=== PATIENT | male | born 1935 | race Caucasian/White ===

== ENCOUNTER → 2016-09-21 | Day surgery (SDC) | payer MEDICARE, OTHER ==
[~2016-09-21] MED LIST: ADVAI100I INH; DIOV320T PO; GENTAMICIN SULFATE 80 MG/2 ML VIAL ONE; LACTATED RINGER'S 1000 ML INJ 1,000 ML ONE; LEVA3NEB7 NEB; MELA10TA3 PO; MIDAZOLAM HCL 2 MG/2 ML VIAL ONE; PANT20 PO; PROPOFOL 200 MG/20 ML AMP IV ONE; REQU2TAB3 PO; SING4GRA PO; TAMS0.4C67 PO
--- NOTE | 2016-09-21 16:59 | TN ---
cc: FE GARCIA M.D. 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 PROCEDURE: Transurethral incision of bladder neck contractor (TUIBNC), (CPT code 66158). INDICATIONS: Mr. Grider is an 81-year-old gentleman who in June 2015 underwent a transurethral resection of the prostate after a failed microwave thermotherapy at an outside institution. He had done quite well postoperatively until recently and he was found to have chronic retention and under local cystoscopy a bladder neck contracture was identified. He returns now for incision of this. FINDINGS: Normal anterior urethra, mild bulbomembranous urethral stricture. The prostatic urethra shows TUR defect with a bladder neck contracture and a very small hole, probably 10 to 12 [place] in diameter. The bladder shows ureteral orifice normal size, shape and position effluxing clear urine. No susie tumors, abnormal mucosal calcifications identified. No diverticuli, significant trabeculation or cellules. DESCRIPTION OF PROCEDURE: The procedure, as well as the risks and benefits were explained to the patient. Informed consent was obtained. The patient was taken to the major operative theater where he was placed in supine position. The patient was identified as well as the operative site. Chase time-out was performed in a standard fashion. At this time general anesthetic and prophylactic intravenous antibiotics consisting of gentamicin 80 mg was administered. After adequate anesthetic the patient was placed in the low dorsolithotomy position, prepped and draped in the usual sterile fashion. At this time a 22.5 [place] cystoscope with a 30 degree lens was inserted into the urethra to the level of the bladder neck contracture. Photo documentation was obtained. The contracture was too narrow to place a scope. At this time decision was made to perform bipolar transurethral incision of the bladder neck contracture using a needle electrode. At this time using normal saline and a 27-[place] [employer] resectoscope, the cystoscope was replaced and the scope was placed under direct vision to the level of the bladder neck contracture at the 9 and 3 o'clock position. The electrode was used to incise the bladder neck at the appropriate depth of tissue. When the scope could be entered into the bladder, the bladder was systematically surveyed with the above findings and then any additional incision of the bladder neck at the 9 and 3 o'clock position as well as hemostasis was achieved using coagulation Bovie electrocautery. After an adequate channel was opened, the bladder was filled. The resectoscope removed and then pressure was placed on the dome of the bladder with an excellent stream. An 18 [place] catheter was placed without difficulty into the bladder, placed to straight drain with 10 cc of sterile water insufflated into the balloon. The patient tolerated the procedure well, merged from anesthetic without difficulty and transferred to the Recovery Room in stable condition to be discharged home when criteria is met. There were no obvious complications. MD ZOILA Parks/RORO /3:31 PM /4:05 PM
== END | disposition home or self-care (01) ==
LOC: ESDC 11:17
PROVIDERS: ATTEND Urology
DX: N32.0 Bladder-neck obstruction (principal)
CPT/HCPCS: 00912; 52640; J1580; J2250; J3010; J7120

== ENCOUNTER 2017-11-30 23:38 | Observation (INO) ==
--- NOTE | 2017-12-01 00:53 | ED ---
HPI General Chief Complaint: Fall Stated Complaint: Mental Status/EVAC Time Seen by Provider: 11/30/17 23:51 History of Present Illness HPI Narrative: This is a 82-year-old male with a history of hypertension, COPD, presents here after having a mechanical fall. Patient reportedly fell in the bathroom. His states that she found him on the floor the bathroom. Patient does not recall falling. When paramedics arrived, they found the patient to be confused. He did not know where he was or what it happened. He was only a note towards his name. There is no other reported injury. Patient has a baseline of being a GCS of 15. He has a large hematoma to his left temporal forehead. Patient denies any pain in his head or neck. There are no other complaints. Patient was able to tell me his name and date of . He did not know the day, year or who was president. Related Data Allergies Allergy/AdvReac Type Severity Reaction Status Date / Time penicillin G Allergy Severe Rash Unverified 12/21/16 18:00 codeine AdvReac Intermediate NAUSEA AND Unverified 12/21/16 18:00 VOMITING DIZZINESS Review of Systems ROS Unobtainable unobtainable due to mental status Except as stated in HPI: all other systems reviewed are negative (Patient has no physical complaints.) Constitutional Reports system reviewed and no additional complaints, except as docu Eyes Reports system reviewed and no additional complaints, except as docu ENT Reports system reviewed and no additional complaints, except as docu Cardiovascular Reports system reviewed and no additional complaints, except as docu Respiratory Reports system reviewed and no additional complaints, except as docu Gastrointestinal Reports system reviewed and no additional complaints, except as docu Genitourinary Reports system reviewed and no additional complaints, except as docu Musculoskeletal Reports system reviewed and no additional complaints, except as docu Neurologic Reports as per HPI Psychiatric Reports system reviewed and no additional complaints, except as docu PMFSH Medical History Medical History Asthma (Acute) Hypertension (Acute) Surgical History Surgical History History of arthroplasty of both hips (Acute) Social History Social History Substance History: No History of Abuse Second Hand Smoke Exposure: No Smoking Status: Never smoker How Often Do You Have a Drink Containing Alcohol: Never Recent Travel in [facility] within the Last 8 Weeks: No Recent Out of Country Travel within the Last 8 Weeks: No Immunization History Tetanus Immunization: <5 Years Hx Influenza Vaccine This Season: Yes Exam Narrative Exam Narrative: GENERAL: Well-developed well-nourished male in no acute respiratory distress. SKIN: Focused skin assessment warm/dry. HEAD: Normocephalic. The patient has a hematoma to his left temporal area. There is no palpable defects in his skull. EYES: Extraocular muscles were intact.. No scleral icterus. No injection or drainage. ENT: No nasal bleeding or discharge. Mucous membranes pink and moist. NECK: Trachea midline. Supple. Patient has no posterior spinous process tenderness. There is no deformity. CARDIOVASCULAR: Regular rate and rhythm. No murmur appreciated. Sinus rhythm noted on the monitor. RESPIRATORY: No accessory muscle use. Clear to auscultation. Breath sounds equal bilaterally. GASTROINTESTINAL: Abdomen soft, non-tender, nondistended. Hepatic and splenic margins not palpable. MUSCULOSKELETAL: No obvious deformities. No clubbing. No cyanosis. No edema. NEUROLOGICAL: Awake and confused to date year and president. No obvious cranial nerve deficits. Motor grossly within normal limits. Normal speech. Course Initial Documented Vital Signs Temperature 98.7 F 11/30/17 23:48 Pulse Rate 78 11/30/17 23:48 Respiratory Rate 16 11/30/17 23:48 Blood Pressure 196/95 H 11/30/17 23:48 Pulse Oximetry 98 11/30/17 23:48 Last Documented Vital Signs Temperature 98.7 F 11/30/17 23:48 Pulse Rate 78 11/30/17 23:48 Respiratory Rate 16 11/30/17 23:48 Blood Pressure 196/95 H 11/30/17 23:48 Pulse Oximetry 98 11/30/17 23:[address] [facility] Narrative Medical decision making narrative: This is a 82-year-old male presents after having a questionable syncopal versus mechanical fall while ambulatory to the bathroom. Patient presents here with confusion. Patient has a cephalohematoma to his left temporal area. CT shows no evidence of acute intracranial abnormality. Patient has normal cervical spine CT. CBC and electrolytes are within normal limits. Urinalysis is within normal limits. The patient did have ecchymosis over his right thumb. He denied any pain. X-ray of the right thumb shows a comminuted distal proximal phalanx fracture. This is been placed in a thumb spica. The patient will be admitted to the hospital under observation for syncope versus concussion. Case was discussed with Dr. Lilli Hillman who is agreeable to the admission. Differential Diagnosis Differential Diagnosis: Percussion versus intracranial hemorrhage versus metabolic derangement Lab Data Result diagrams: 12/01/17 01:15 12/01/17 01:15 Lab Results 12/01/17 12/01/17 12/01/17 Range/Units 01:15 01:15 01:20 WBC 8.1 (4.0-11.0) th/mm3 RBC 4.16 L (4.50-5.90) mil/mm3 Hgb 13.0 (13.0-17.0) gm/dL Hct 39.7 (39.0-51.0) % MCV 95.3 (80.0-100.0) fL MCH 31.3 (27.0-34.0) pg MCHC 32.9 (32.0-36.0) % RDW 14.1 (11.6-17.2) % Plt Count 292 (150-450) th/mm3 MPV 8.2 (7.0-11.0) fL Neut % (Auto) 55.4 (16.0-70.0) % Lymph % (Auto) 33.1 (9.0-44.0) % [place] % (Auto) 8.2 H (0.0-8.0) % Eos % (Auto) 2.6 (0.0-4.0) % Baso % (Auto) 0.7 (0.0-2.0) % Neut # (Auto) 4.5 (1.8-7.7) th/mm3 Lymph # (Auto) 2.7 (1.0-4.8) th/mm3 [place] # (Auto) 0.7 (0.0-0.9) th/mm3 Eos # (Auto) 0.2 (0.0-0.4) th/mm3 Baso # (Auto) 0.1 (0.0-0.2) th/mm3 WBC Differential . Differential Comment Auto diff final Sodium 139 (136-145) meq/L Potassium 3.9 (3.5-5.1) meq/L Chloride 105 (98-107) meq/L Carbon Dioxide 25.3 (21.0-32.0) meq/L Anion Gap 9 (5-15) meq/L BUN 13 (7-18) mg/dL Creatinine 0.64 (0.60-1.30) mg/dL Estimated GFR Greater than 89 (>89) mL/min Random Glucose 111 H (74-106) mg/dL Calcium 8.4 L (8.5-10.1) mg/dL Total Bilirubin 0.4 (0.2-1.0) mg/dL AST 53 H (15-37) U/L ALT 55 (12-78) U/L Alkaline Phosphatase 105 (45-117) U/L Total Protein 7.2 (6.4-8.2) g/dL Albumin 3.7 (3.4-5.0) g/dL Urine Color Straw (Yellw/Straw) Urine Clarity Clear (Clear) Urine pH 7.0 (5.0-8.5) Ur Specific [place] 1.005 (1.002-1.035) Urine Protein Negative (Neg-Trace) mg/dL Urine Glucose (UA) Negative (Negative) mg/dL Urine Ketones Negative (Negative) mg/dL Urine Occult Blood Negative (Negative) Urine Nitrate Negative (Negative) Urine Bilirubin Negative (Negative) Urine Urobilinogen Less than 2 (Less than 2) mg/dL Ur Leukocyte Esterase Negative (Negative) Urine RBC 1 (0-3) /hpf Urine WBC Less than 1 (0-5) /hpf Micro UA Comment Culture not ind Urine Culture Comments Culture not ind Imaging Data Radiologist's impression: Cervical Spine CT 12/01/17 00:01 CONCLUSION: Head CT 12/01/17 00:01 CONCLUSION: Finger X-Ray 12/01/17 01:32 CONCLUSION: Discharge Plan Discharge Disposition Patient Disposition: 30 Still Patient Discharge Details Diagnosis: Closed head injury with brief loss of consciousness, Syncope, Fracture of phalanx of right thumb Physicians Team ED Provider: Bob Isabel Primary Care Provider: Brandon Foy Status ED Status: With Doctor
--- NOTE | 2017-12-01 00:56 | CT ---
EXAM DATE: 12/01/2017 12:43 AM EDT AGE/SEX: 82 years / Male INDICATIONS: Trauma; fall. CLINICAL DATA: This is the patient's initial encounter. Patient reports that signs and symptoms have been present for 1 day and indicates a pain score of 5/10. MEDICAL/SURGICAL HISTORY: Hypertension. . hip RADIATION DOSE: 21.05 CTDI (mGy) COMPARISON: No prior exams available for comparison. TECHNIQUE: Contiguous axial images were obtained using helical multirow detector technique. The vol umetric data was post-processed with multiplanar reconstruction in oblique axial, sagittal, and coron al planes. Using automated exposure control and adjustment of the mA and/or kV according to patient s ize, radiation dose was kept as low as reasonably achievable to obtain optimal diagnostic quality maya ges. DICOM format image data is available electronically for review and comparison. FINDINGS: Sagittal and coronal reconstruction show multilevel degenerative disc disease with loss of disc heigh t and some marginal spurring from C3-4 inferiorly. Vertebral body heights are maintained without frac ture. Minimal grade 1 anterolisthesis of C7 on T1. Despite the minimal degenerative spurring, the spi nal canal appears to be adequate throughout. Well-corticated ossifications posterior to the spinous p rocesses of C5 and C6 could represent old avulsion injuries. I do not see an acute fracture, however. C2-3: The bony spinal canal is normal in size. No evidence of disc bulge or herniation. The neural foramina are bilaterally patent. C3-4: I vertebral ridging with encroachment on both neural foramina. Spinal canal is adequate C4-5: Uncovertebral ridging with marked narrowing of the left neural foramina which almost certainly compromises the left C5 nerve root. Spinal canal and right neural foramina are adequate C5-6: I vertebral ridging with narrowing of both neural foramina. I believe the foramina remain adeq uate to accommodate the exiting C6 nerve roots, however C6-7: Uncovertebral ridging with asymmetric narrowing the left neural foramina which may compromise the left C7 nerve root. Spinal canal and right neural foramina are adequate C7-T1: The bony spinal canal is normal in size. No evidence of disc bulge or herniation. The neura l foramina are bilaterally patent. 1. Multilevel degenerative disc disease with loss of disc height and some uncovertebral ridging from C3-4 inferiorly. Minimal grade 1 anterolisthesis of C7 on T1 2. Well-corticated ossifications posteriorly to the spinous processes of C5 and C6 may represent old avulsion injuries or soft tissue ossification. No acute fractures, however. 3. Despite degenerative changes, the spinal canal appears to be adequate throughout without cord com promise. 4. Uncovertebral ridging narrows neural foramina at multiple levels which may be severe enough to co mpromise both C4, left C5 and left C7 nerve roots. Electronically signed by: Kilo Mario MD 12/01/2017 12:55 AM EDT
--- NOTE | 2017-12-01 00:59 | CT ---
EXAM DATE: 12/01/2017 12:42 AM EDT AGE/SEX: 82 years / Male INDICATIONS: Trauma; fall. CLINICAL DATA: This is the patient's initial encounter. Patient reports that signs and symptoms have been present for 1 day and indicates a pain score of 5/10. MEDICAL/SURGICAL HISTORY: Hypertension. . hip RADIATION DOSE: 56.35 CTDI (mGy) COMPARISON: No prior exams available for comparison. TECHNIQUE: CT of the head without contrast. Using automated exposure control and adjustment of the mA and/or kV according to patient size, radiation dose was kept as low as reasonably achievable to ob tain optimal diagnostic quality images. DICOM format image data is available electronically for revi ew and comparison. FINDINGS: Cerebrum: Symmetric cortical and central atrophy. Periventricular areas of diminished attenuation ch aracteristic of moderately severe small vessel ischemic demyelination. No evidence of midline shift, mass lesion, hemorrhage or acute infarction. No extraaxial fluid collections are seen. Posterior Fossa: The cerebellum and brainstem are intact. The 4th ventricle is midline. The cerebe llopontine angle is unremarkable. Extracranial: The visualized portion of the orbits is intact. Skull: The calvaria is intact. No evidence of skull fracture. Small cephalhematoma over the left fr ontal bone. 1. Small cephalohematoma over the left frontal region. 2. Chronic changes with cortical and central atrophy and periventricular small vessel ischemic demye lination. 3. No acute intracranial process, trauma or fracture. . Electronically signed by: Kilo Mario MD 12/01/2017 12:58 AM EDT
[2017-12-01 01:36] LABS: Baso # (Auto) 0.1 th/mm3 (0.0-0.2); Baso % (Auto) 0.7 % (0.0-2.0); Eos # (Auto) 0.2 th/mm3 (0.0-0.4); Eos % (Auto) 2.6 % (0.0-4.0); Hematocrit 39.7 % (39.0-51.0); Lymph # (Auto) 2.7 th/mm3 (1.0-4.8); Lymph % (Auto) 33.1 % (9.0-44.0); Mean Corpuscular HGB Conc 32.9 % (32.0-36.0); Mean Corpuscular Hemoglobin 31.3 pg (27.0-34.0); Mean Corpuscular Volume 95.3 fL (80.0-100.0); Mean Platelet Volume 8.2 fL (7.0-11.0); Mono # (Auto) 0.7 th/mm3 (0.0-0.9); Mono % (Auto) 8.2 % (0.0-8.0); Neut # (Auto) 4.5 th/mm3 (1.8-7.7); Neut % (Auto) 55.4 % (16.0-70.0); Platelet Count 292 th/mm3 (150-450); Red Blood Count 4.16 mil/mm3 (4.50-5.90); Red Cell Distribution Width 14.1 % (11.6-17.2); White Blood Count 8.1 th/mm3 (4.0-11.0)
[2017-12-01 01:54] LABS: Bilirubin,Urine Negative (Negative); Clarity,Urine Clear (Clear); Color,Urine Straw (Yellw/Straw); Glucose,Urine (UA) Negative (Negative); Leukocyte Esterase,Urine Negative (Negative); Nitrite,Urine Negative (Negative); Specific Gravity,Urine 1.005 (1.002-1.035)
[2017-12-01 02:05] LABS: Albumin 3.7 g/dL (3.4-5.0); Anion Gap 9 meq/L (5-15); Aspartate Aminotransferase 53 U/L (15-37); Blood Urea Nitrogen 13 mg/dL (7-18); Calcium 8.4 mg/dL (8.5-10.1); Carbon Dioxide 25.3 meq/L (21.0-32.0); Chloride 105 meq/L (98-107); Glomerular Filtration Rate Greater Than 89 mL/min (>89); Glucose,Random 111 mg/dL (74-106); Potassium 3.9 meq/L (3.5-5.1); Sodium 139 meq/L (136-145)
[2017-12-01 02:07] LABS: Alanine Aminotransferase 55 U/L (12-78); Alkaline Phosphatase 105 U/L (45-117); Total Protein 7.2 g/dL (6.4-8.2)
--- NOTE | 2017-12-01 02:29 | XR ---
EXAM DATE: 12/01/2017 2:11 AM EDT AGE/SEX: 82 years / Male INDICATIONS: Right thumb pain and bruising. CLINICAL DATA: This is the patient's initial encounter. Patient reports that signs and symptoms have been present for 1 day and indicates a pain score of 6/10. MEDICAL/SURGICAL HISTORY: Hypertension. None. COMPARISON: No prior exams available for comparison. FINDINGS: Comminuted fracture through the base of the distal phalanx of the thumb with intra-articular extensio n. There may be an avulsion fracture through the base of the first metacarpal as well. CONCLUSION: 1. Comminuted fracture at the base of the distal phalanx of the thumb with intra-articular extension . 2. Possible avulsion injury at the base of the first metacarpal. Electronically signed by: Kilo Mario MD 12/01/2017 2:27 AM EDT
[2017-12-01] MEDS ORDERED: Temazepam 15 MG Capsule PO PRN (03:29)
[2017-12-01] MEDS ORDERED: Bisacodyl 10 MG Supp RECTAL PRN (03:29)
--- NOTE | 2017-12-01 04:15 | P.HP ---
History of Present Illness Service: [facility] Primary Care Physician: Brandon Foy MD History of Present Illness: 82-year-old male with a past medical history significant for hypertension and asthma presents to the emergency department after suffering a fall. The patient 's reports that he heard a crash from the bathroom and when he came in she found her on the floor. The patient is not sure how he fell, believes it may be secondary to low blood pressure. The patient has a cephalohematoma on the left side of his head secondary to his fall. He denies any chest pain or shortness of breath. No abdominal pain. No nausea/vomiting/diarrhea. No fever/chills. The patient's reports that the patient was very confused after his fall. She states he only knew his name and did not know his birthday, the current year or the president. At the time of our interview the patient is able to answer all of these questions correctly. He states he feels fine at this time. Review of Systems All other systems reviewed negative except as stated in HPI [facility] - History History Provided By: Patient, Family Member - Medical History Medical History: Medical History (Last Updated 11/30/17 @ 23:51 by Nakul Montano) Asthma Hypertension - Surgical History Surgical History: Surgical History (Last Updated 11/30/17 @ 23:53 by Nakul Montano) History of arthroplasty of both hips - Family History Family History: Family History (Last Updated 12/01/17 @ 04:09 by Lilli Hillman MD) Other No family history of cardiac disease - Tobacco History Second Hand Smoke Exposure: No Smoking Status: Never smoker - Alcohol History How Often Do You Have a Drink Containing Alcohol: Never - Substance Use History Substance History: No History of Abuse - Travel History Recent Travel in the [place] Within the Last 8 Weeks: No Recent Travel Out of the Country Within the Last 8 Weeks: No - Immunization History Tetanus Immunization: <5 Years Hx Influenza Vaccine This Season: Yes Medications and Allergies Active Medications: Active Medications Acetaminophen (Tylenol) 650 mg PO Q4H PRN PRN Reason: Temp > 100.4 Al Hydroxide/Mg Hydroxide (Milk Of Magnesia Liq) 30 ml PO Q12H PRN PRN Reason: Mild Constipation Bisacodyl (Dulcolax Supp) 10 mg RECTAL DAILY PRN PRN Reason: SEVERE CONSITIPATION Heparin Sodium (Porcine) (Heparin Inj) 5,000 units SQ Q8H PETEY Lactulose (Lactulose Liq) 30 ml PO DAILY PRN PRN Reason: SEVERE CONSITIPATION Ondansetron HCl (Zofran Inj) 4 mg IV.PUSH Q6H PRN PRN Reason: NAUSEA OR VOMITING Ropinirole HCl (Requip) 1 mg PO HS PETEY Senna/Docusate Sodium (Tiffanie-Colace) 1 tab PO BID PETEY Sennosides (Senokot) 17.2 mg PO Q12H PRN PRN Reason: Moderate Constipation Temazepam (Restoril) 15 mg PO HS PRN PRN Reason: INSOMNIA Allergies Allergy/AdvReac Type Severity Reaction Status Date / Time penicillin G Allergy Severe Rash Unverified 12/21/16 18:00 codeine AdvReac Intermediate NAUSEA AND Unverified 12/21/16 18:00 VOMITING DIZZINESS Exam Vital signs: Vital Signs 11/30/17 23:48 Temperature 98.7 F Pulse Rate 78 Respiratory Rate 16 Blood Pressure 196/95 H Pulse Oximetry 98 Intake & Output 11/30/17 11/30/17 12/01/17 06:59 18:59 06:59 Weight 90.718 kg Narrative: Gen.: No acute distress Head: Moderate size cephalohematoma on left forehead near the shinto. EENT: Pupils equal round and reactive to light. Nose without drainage. Airway intact. Throat without injection. Cardiovascular: Regular rate and rhythm. No murmurs, rubs or gallops. Respiratory: Lungs clear to auscultation bilaterally. No wheezes or rhonchi. Abdomen: Soft, nontender, nondistended. No peritoneal signs. Musculoskeletal: No gross deformities. No edema. Skin: No obvious rashes or erythema. Neuro: Sensory and motor grossly intact. Cranial nerves II through XII grossly intact. Results - Labs CBC & Chem 7: 12/01/17 01:15 12/01/17 01:15 Labs: Laboratory Results - last 24 hr 12/01/17 12/01/17 12/01/17 01:15 01:15 01:20 WBC 8.1 RBC 4.16 L Hgb 13.0 Hct 39.7 MCV 95.3 MCH 31.3 MCHC 32.9 RDW 14.1 Plt Count 292 MPV 8.2 Neut % (Auto) 55.4 Lymph % (Auto) 33.1 [place] % (Auto) 8.2 H Eos % (Auto) 2.6 Baso % (Auto) 0.7 Neut # (Auto) 4.5 Lymph # (Auto) 2.7 [place] # (Auto) 0.7 Eos # (Auto) 0.2 Baso # (Auto) 0.1 WBC Differential . Differential Comment Auto diff final Sodium 139 Potassium 3.9 Chloride 105 Carbon Dioxide 25.3 Anion Gap 9 BUN 13 Creatinine 0.64 Estimated GFR Greater than 89 Random Glucose 111 H Calcium 8.4 L Total Bilirubin 0.4 AST 53 H ALT 55 Alkaline Phosphatase 105 Total Protein 7.2 Albumin 3.7 Urine Color Straw Urine Clarity Clear Urine pH 7.0 Ur Specific [place] 1.005 Urine Protein Negative Urine Glucose (UA) Negative Urine Ketones Negative Urine Occult Blood Negative Urine Nitrate Negative Urine Bilirubin Negative Urine Urobilinogen Less than 2 Ur Leukocyte Esterase Negative Urine RBC 1 Urine WBC Less than 1 Micro UA Comment Culture not ind Urine Culture Comments Culture not ind - Imaging Impressions Cervical Spine CT 12/01/17 00:01 CONCLUSION: Head CT 12/01/17 00:01 CONCLUSION: Finger X-Ray 12/01/17 01:32 CONCLUSION: Caprini VTE Risk Assessment Caprini VTE Risk Assessment: Moderate/High Risk (score >= 2) Caprini Risk Assessment Model: Point Value = 1 Point Value = 2 Point Value = 3 Point Value = 5 Age 41-60 Minor surgery BMI > 25 kg/m2 Swollen legs Varicose veins or History of unexplained or recurrent spontaneous Oral contraceptives or hormone replacement Sepsis (< 1 month) Serious lung disease, including pneumonia (< 1 month) Abnormal pulmonary function Acute myocardial infarction Congestive heart failure (< 1 month) History of inflammatory bowel disease Medical patient at bed rest Age 61-74 Arthroscopic surgery Major open surgery (> 45 min) Laparoscopic surgery (> 45 min) Malignancy Confined to bed (> 72 hours) Immobilizing plaster cast Central venous access Age >= 75 History of VTE Family history of VTE Factor V Leiden Prothrombin [id number] Lupus anticoagulant Anticardiolipin antibodies Elevated serum homocysteine Heparin-induced thrombocytopenia Other congenital or acquired thrombophilia Stroke (< 1 month) Elective arthroplasty Hip, pelvis, or leg fracture Acute spinal cord injury (< 1 month) Prophylaxis Regimen: Total Risk Factor Score Risk Level Prophylaxis Regimen 0-1 Low Early ambulation 2 Moderate Order ONE of the following: *Sequential Compression Device (SCD) *Heparin 5000 units SQ BID 3-4 Higher Order ONE of the following medications: *Heparin 5000 units SQ TID *Enoxaparin/Lovenox 40 mg SQ daily (WT < 150 kg, CrCl > 30 mL/min) *Enoxaparin/Lovenox 30 mg SQ daily (WT < 150 kg, CrCl > 10-29 mL/min) *Enoxaparin/Lovenox 30 mg SQ BID (WT < 150 kg, CrCl > 30 mL/min) AND/OR *Sequential Compression Device (SCD) 5 or more Highest Order ONE of the following medications: *Heparin 5000 units SQ TID (Preferred with Epidurals) *Enoxaparin/Lovenox 40 mg SQ daily (WT < 150 kg, CrCl > 30 mL/min) *Enoxaparin/Lovenox 30 mg SQ daily (WT < 150 kg, CrCl > 10-29 mL/min) *Enoxaparin/Lovenox 30 mg SQ BID (WT < 150 kg, CrCl > 30 mL/min) AND *Sequential Compression Device (SCD) Assessment and Plan - Plan Assessment/plan: 1. Altered mental status/? syncopal event Patient does not remember how he fell. Concern for syncope. 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 Hypertension Continue home medications once medication reconciliation completed Clonidine as needed 3. Restless leg syndrome Continue home Requip FEN Heart healthy diet Electrolytes: Monitor and replete as needed Holding pharmacologic anticoagulation secondary to head trauma
[2017-12-01 05:05] LABS: Creatine Kinase 891 U/L (39-308)
[2017-12-01 05:17] LABS: CKMB Percent 2.8 % (0.0-4.0); Creatine Kinase MB 24.7 ng/mL (0.5-3.6)
[2017-12-01] MEDS ORDERED: Heparin - SQ 10,000 UNITS/ML Vial SQ SCH (06:00)
[2017-12-01] MEDS: Acetaminophen 325 MG Tablet PO PRN ×3 (08:41→21:55)
--- NOTE | 2017-12-01 08:41 | P.PN ---
Subjective Interval history: Follow-up fall and confusion. Feeling ok oriented no confusion Physical Exam Vital signs: Vital Signs 11/30/17 23:48 12/01/17 04:39 12/01/17 06:10 Temperature 98.7 F 98.3 F 98.0 F Pulse Rate 78 66 61 Respiratory Rate 16 14 14 Blood Pressure 196/95 H 168/83 H 158/73 H Pulse Oximetry 98 98 98 12/01/17 07:55 Temperature Pulse Rate 58 L Respiratory Rate 18 Blood Pressure 150/79 H Pulse Oximetry Intake & Output 11/30/17 12/01/17 12/01/17 18:59 06:59 18:59 Weight 90.718 kg Narrative: Gen.: No acute distress Head: Moderate size cephalohematoma on left forehead near the yazdanism. Cardiovascular: Regular rate and rhythm. No murmurs, rubs or gallops. Respiratory: Lungs clear to auscultation bilaterally. No wheezes or rhonchi. Abdomen: Soft, nontender, nondistended. No peritoneal signs. Musculoskeletal: No gross deformities. No edema. Skin: No obvious rashes or erythema. Neuro: Sensory and motor grossly intact. Cranial nerves II through XII grossly intact. Results - Labs CBC & Chem 7: 12/01/17 01:15 12/01/17 01:15 Laboratory Results - last 24 hr 12/01/17 12/01/17 12/01/17 01:15 01:15 01:20 WBC 8.1 RBC 4.16 L Hgb 13.0 Hct 39.7 MCV 95.3 MCH 31.3 MCHC 32.9 RDW 14.1 Plt Count 292 MPV 8.2 Neut % (Auto) 55.4 Lymph % (Auto) 33.1 [place] % (Auto) 8.2 H Eos % (Auto) 2.6 Baso % (Auto) 0.7 Neut # (Auto) 4.5 Lymph # (Auto) 2.7 [place] # (Auto) 0.7 Eos # (Auto) 0.2 Baso # (Auto) 0.1 WBC Differential . Differential Comment Auto diff final Sodium 139 Potassium 3.9 Chloride 105 Carbon Dioxide 25.3 Anion Gap 9 BUN 13 Creatinine 0.64 Estimated GFR Greater than 89 Random Glucose 111 H Calcium 8.4 L Total Bilirubin 0.4 AST 53 H ALT 55 Alkaline Phosphatase 105 Total Creatine Kinase 891 H CK-MB (CK-2) 24.7 H CK-MB (CK-2) % 2.8 Troponin I Less than 0.02 L Total Protein 7.2 Albumin 3.7 Urine Color Straw Urine Clarity Clear Urine pH 7.0 Ur Specific [place] 1.005 Urine Protein Negative Urine Glucose (UA) Negative Urine Ketones Negative Urine Occult Blood Negative Urine Nitrate Negative Urine Bilirubin Negative Urine Urobilinogen Less than 2 Ur Leukocyte Esterase Negative Urine RBC 1 Urine WBC Less than 1 Micro UA Comment Culture not ind Urine Culture Comments Culture not ind - Imaging Impressions Cervical Spine CT 12/01/17 00:01 CONCLUSION: Head CT 12/01/17 00:01 CONCLUSION: Finger X-Ray 12/01/17 01:32 CONCLUSION: - Procedures none Assessment and Plan - Assessment (1) Closed head injury with brief loss of consciousness Code(s): S06.9X9A - Unspecified intracranial injury with loss of consciousness of unspecified duration, initial encounter Status: Acute - Plan 1. Altered mental status/? syncopal event. Patient does not remember how he fell. Concern for syncope. Echo, carotid ultrasound pending Orthostatic vital signs pending Head CT significant for a cephalohematoma over the left frontal region without acute intracranial process. Ice Mentation has returned to baseline. May be post concussive syndrome Consider MRI/neurology consult if symptoms return 2. Hypertension Continue home medications once medication reconciliation completed Clonidine as needed 3. Restless leg syndrome Continue home Requip 4. Uncovertebral ridging narrows neural foramina at multiple levels which may be severe enough to compromise both C4, left C5 and left C7 nerve roots. Intermittent neck pain after swimming but no radiculopathy or weakness. 5. Comminuted fracture at the base of the distal phalanx of the thumb with intra-articular extension. Possible avulsion injury at the base of the first metacarpal. Nonweightbearing. Splinting. Consult hand surgery. Pain management with Tylenol and Lortab FEN N.p.o. for now. IV fluids while n.p.o. Electrolytes: Monitor and replete as needed Holding pharmacologic anticoagulation secondary to head trauma Discharge Planning: Discharge when cleared by hand surgery
[2017-12-01] MEDS ORDERED: Naloxone Inj 0.4 MG/ML Vial IV.PUSH PRN (08:50)
[2017-12-01] MEDS ORDERED: Dextrose 50% in Water 50 ML Vial IV.PUSH PRN (08:51)
--- NOTE | 2017-12-01 09:03 | US ---
EXAM DATE: 12/01/2017 8:32 AM EDT AGE/SEX: 82 years / Male INDICATIONS: Syncope. Recent trauma and head injury. CLINICAL DATA: This is the patient's initial encounter. Patient reports that signs and symptoms have been present for 1 day and indicates a pain score of 4/10. MEDICAL/SURGICAL HISTORY: . Hypertension. . Bilateral hip surgery. COMPARISON: No prior exams available for comparison. VELOCITY PARAMETERS: ICA/CCA Ratio: Right 0.6 , Left 0.7 ICA: Right 59 cm/sec, Left 63 cm/sec CCA: Right 104 cm/sec, Left 85 cm/sec ECA: Right 69 cm/sec, Left 76 cm/sec Vertebral: Right 34 cm/sec antegrade, Left 40 cm/sec antegrade FINDINGS: Right Carotid: Mild arteriosclerotic plaque is visualized.The waveforms are within normal limits. Left Carotid: Mild arteriosclerotic plaque is visualized. The waveforms are within normal limits. Other: None. Electronically signed by: Panchito Keenan MD 12/01/2017 9:02 AM EDT
[2017-12-01] MEDS: Senna/Docusate Sodium 8.6/50 MG Tablet PO SCH ×2 (11:55→23:16)
--- NOTE | 2017-12-01 14:46 | P.DCO ---
- Diagnosis (2) Syncope (3) Fracture of phalanx of right thumb - Physical Therapy Order: Evaluate and treat, Improve ambulation, Strength and gait training - Home Health Nursing Order: Medication education-adverse effect, Nursing assessment with vital signs - Certification I have seen patient Rani Grider on 12/01/17. My clinical findings support the need for the requested home health care services because: Deconditioned with increased weakness I certify that my clinical findings support that this patient is homebound because: Unsafe to leave home unassisted (2) Syncope Qualifiers: Syncope type: unspecified Qualified Code(s): R55 - Syncope and collapse (3) Fracture of phalanx of right thumb Qualifiers: Encounter type: initial encounter Fracture type: closed Phalanx: distal Fracture alignment: nondisplaced Qualified Code(s): S62.524A - Nondisplaced fracture of distal phalanx of right thumb, initial encounter for closed fracture
--- NOTE | 2017-12-01 17:53 | MB ---
cc: Mary Arora MD DATE: 12/01/2017 REQUESTING PHYSICIAN: Dr. Duncan Piper. REASON FOR CONSULTATION: Comminuted fracture of the right thumb distal phalanx base. HISTORY OF PRESENT ILLNESS: The patient is an 82-year-old male who was admitted earlier today. It was noted that he had fallen at home. During the workup, it was noted the patient did have ecchymosis of his right thumb. Consultation was requested regarding evaluation and treatment of that fracture. The patient does report that he can bend the thumb but that there is pain. PAST MEDICAL HISTORY: The patient has a history of asthma and hypertension. PAST SURGICAL HISTORY: Arthroplasty of both hips. FAMILY HISTORY: Noncontributory. SOCIAL HISTORY: The patient never smoked. Denies a history of alcohol or drug abuse. ALLERGIES: INCLUDE PENICILLIN G AND CODEINE. PHYSICAL EXAMINATION: GENERAL: The patient is lying comfortably in bed. VITAL SIGNS: His temperature is 97.9, pulse 51, respirations 16, blood pressure 155/75. HEENT: His extraocular muscles are intact. His pupils are equal, round and reactive to light. His mouth is clear. NECK: Supple, without masses. LUNGS: Clear. HEART: Regular rate and rhythm. EXTREMITIES: Examination of the upper extremities reveal some ecchymosis of the right thumb. The patient can bend the thumb slightly, but it does cause discomfort. RADIOGRAPHIC STUDIES: The s-rays are reviewed and there is a comminuted fracture of the base of the right thumb distal phalanx, but the joint is congruent and there are several millimeters of displacement, but it does appear to be adequately aligned. IMPRESSION: Comminuted fracture of the base of the right thumb. PLAN: The patient is advised of 3-4 weeks of splinting and he should be able to regain his motion. The patient is to follow up in my office after discharge for further examination and treatment. The patient understands and accepts the risks and complications of the treatment. MD PHOEBE Cotto/HIRAM , 05:39 PM , 05:48 PM
[2017-12-01] MEDS ORDERED: CALCIUM CARBONATE 1200 MG PO SCH (21:00)
[2017-12-01] MEDS ORDERED: Melatonin 5 MG Tablet PO PRN (21:00)
[2017-12-01] MEDS ORDERED: Non-Formulary Drug (Cholecalciferol (Vitamin D3) [Vitamin D3] 1,000 UNIT) PO SCH (21:00)
[2017-12-01] MEDS ORDERED: Non-Formulary Drug (Fluticasone-Salmeterol [Advair Diskus] 1 INH) INHALATION SCH (21:00)
[2017-12-01] MEDS: Calcium Carbonate 500 MG Tablet PO SCH (21:46)
[2017-12-01] MEDS: Montelukast 10 MG Tablet PO SCH (21:46)
[2017-12-01] MEDS: Budesonide-Formoterol 160/4.5 MCG 6 GM Inhaler INH SCH (21:47)
[2017-12-02] MEDS: Senna/Docusate Sodium 8.6/50 MG Tablet PO SCH ×2 (09:36→21:55)
[2017-12-02] MEDS: Budesonide-Formoterol 160/4.5 MCG 6 GM Inhaler INH SCH ×2 (09:36→21:55)
[2017-12-02] MEDS: Folic Acid 1 MG Tablet PO SCH (09:36)
[2017-12-02] MEDS: Acetaminophen 325 MG Tablet PO PRN (09:36)
[2017-12-02] MEDS: Calcium Carbonate 500 MG Tablet PO SCH ×2 (09:36→21:54)
[2017-12-02 09:55] LABS: Baso % (Auto) 0.4 % (0.0-2.0); Eos # (Auto) 0.1 th/mm3 (0.0-0.4); Hematocrit 38.1 % (39.0-51.0); Hemoglobin 12.9 gm/dL (13.0-17.0); Lymph # (Auto) 1.8 th/mm3 (1.0-4.8); Lymph % (Auto) 27.5 % (9.0-44.0); Mean Corpuscular HGB Conc 33.8 % (32.0-36.0); Mean Corpuscular Hemoglobin 32.1 pg (27.0-34.0); Mean Corpuscular Volume 95.1 fL (80.0-100.0); Mean Platelet Volume 7.8 fL (7.0-11.0); Mono # (Auto) 0.6 th/mm3 (0.0-0.9); Mono % (Auto) 8.4 % (0.0-8.0); Neut # (Auto) 4.1 th/mm3 (1.8-7.7); Neut % (Auto) 61.7 % (16.0-70.0); Platelet Count 284 th/mm3 (150-450); Red Cell Distribution Width 13.9 % (11.6-17.2); White Blood Count 6.6 th/mm3 (4.0-11.0)
[2017-12-02 10:19] LABS: Anion Gap 4 meq/L (5-15); Blood Urea Nitrogen 9 mg/dL (7-18); Calcium 8.8 mg/dL (8.5-10.1); Carbon Dioxide 28.6 meq/L (21.0-32.0); Chloride 107 meq/L (98-107); Glomerular Filtration Rate Greater Than 89 mL/min (>89); Glucose,Random 93 mg/dL (74-106); Potassium 4.1 meq/L (3.5-5.1); Sodium 140 meq/L (136-145)
--- NOTE | 2017-12-02 15:46 | ECHRPT ---
Indication: SOB CONCLUSIONS Normal left ventricular size. Mild concentric left ventricular hypertrophy. The left ventricular systolic function is low normal with an estimated ejection fraction in the rang e of 50- 55%. The left atrial size is mildly dilated. The right atrial size is mildly dilated. The interatrial septum not well visualized. Mild aortic dilatation at the level of the sinuses of Valsalva. Mild mitral valve regurgitation. Aortic valve sclerosis is present. Trace aortic valve regurgitation. small mobile echodensity on the noncoronary cusp of the aortic valve outflow side. More consistent with aortic valve sclerosis, but cannot rule out vegetation. Clinical correlation recommended. Size 0.5 x 0.2 cm approximately.There is trace tricuspid valve regurgitation. The estimated pulmonary arterial pressure is 40 mmHg. The inferior vena cava was not well visualized. BP: / HR: Rhythm: Sinus MEASUREMENTS (Male / Female) Normal Values Technical Quality:Fair 2D ECHO LV Diastolic Diameter PLAX 3.5 cm 4.2 - 5.9 / 3.9 - 5.3 cm LV Systolic Diameter PLAX 2.6 cm IVS Diastolic Thickness 1.3 cm 0.6 - 1.0 / 0.6 - 0.9 cm LVPW Diastolic Thickness 1.3 cm 0.6 - 1.0 / 0.6 - 0.9 cm LV Relative Wall Thickness 0.7 RV Internal Dim ED PLAX 3.0 cm LVOT Diameter 2.5 cm Aortic Root Diameter 3.9 cm LA Systolic Diameter LX 4.0 cm 3.0 - 4.0 / 2.7 - 3.8 cm M-MODE AV Cusp Separation MM 1.3 cm DOPPLER AV Peak Velocity 311.5 cm/s AV Peak Gradient 38.8 mmHg AV Mean Gradient 20.5 mmHg AV Velocity Time Integral 61.5 cm LVOT Peak Velocity 135.0 cm/s LVOT Peak Gradient 7.3 mmHg LVOT Velocity Time Integral 28.1 cm AV Area Cont Eq vti 2.2 cm AV Area Cont Eq pk 2.1 cm Mitral E Point Velocity 87.4 cm/s Mitral A Point Velocity 98.2 cm/s Mitral E to A Ratio 0.9 LV E' Lateral Velocity 10.4 cm/s Mitral E to LV E' Lateral Ratio 8.4 LV E' Septal Velocity 7.7 cm/s Mitral E to LV E' Septal Ratio 11.4 TR Peak Velocity 276.0 cm/s TR Peak Gradient 30.5 mmHg PV Peak Velocity 87.2 cm/s PV Peak Gradient 3.0 mmHg FINDINGS LEFT VENTRICLE Normal left ventricular size. Mild concentric left ventricular hypertrophy. The left ventricular systolic function is low normal with an estimated ejection fraction in the rang e of 50- 55%. RIGHT VENTRICLE Normal right ventricular size and systolic function. LEFT ATRIUM The left atrial size is mildly dilated. RIGHT ATRIUM The right atrial size is mildly dilated. ATRIAL SEPTUM The interatrial septum not well visualized. AORTA Mild aortic dilatation at the level of the sinuses of Valsalva. MITRAL VALVE Mild mitral valve regurgitation. AORTIC VALVE Aortic valve sclerosis is present. Trace aortic valve regurgitation. small mobile echodensity on the noncoronary cusp of the aortic valve outflow side. More consistent with aortic valve sclerosis, but cannot rule out vegetation. Clinical correlation recommended. Size 0.5 x 0.2 cm approximately. TRICUSPID VALVE There is trace tricuspid valve regurgitation. The estimated pulmonary arterial pressure is 40 mmHg. PULMONARY VALVE No pulmonary valve regurgitation or stenosis. VESSELS The inferior vena cava was not well visualized. PERICARDIUM No pericardial effusion. Manas Guzmán MD, FACC (Electronically Signed) Final Date:02 December 2017 15:45 Amended: 03 December 2017 10:16
--- NOTE | 2017-12-02 18:10 | P.PN ---
Subjective Interval history: Late entry. F/u syncope. No c/o but SB in the 40s Physical Exam Vital signs: Vital Signs 12/01/17 19:30 12/01/17 23:17 12/02/17 03:36 Temperature 97.9 F 98.1 F 97.9 F Pulse Rate 62 58 L 57 L Respiratory Rate 16 16 16 Blood Pressure 132/65 114/67 122/69 Pulse Oximetry 96 97 98 12/02/17 05:57 12/02/17 08:46 12/02/17 12:16 Temperature 98.6 F Pulse Rate 47 L 78 60 Respiratory Rate 20 Blood Pressure 144/75 H Pulse Oximetry 12/02/17 16:10 Temperature 97.7 F Pulse Rate 55 L Respiratory Rate 16 Blood Pressure 121/78 Pulse Oximetry 99 Intake & Output 12/01/17 12/02/17 12/02/17 18:59 06:59 18:59 Output Total 500 / 500 Balance -500 / -500 Output: Urine 500 / 500 Other: Date of Last Bowel Movement 12/01/17 11/30/17 # Bowel Movements 1 Narrative: Gen.: No acute distress Head: Moderate size cephalohematoma on left forehead near the religion. Cardiovascular: SB, Regular rhythm. No murmurs, rubs or gallops. Respiratory: Lungs clear to auscultation bilaterally. No wheezes or rhonchi. Abdomen: Soft, nontender, nondistended. No peritoneal signs. Musculoskeletal: No gross deformities. No edema. Skin: No obvious rashes or erythema. Neuro: Sensory and motor grossly intact. Cranial nerves II through XII grossly intact. Results - Labs CBC & Chem 7: 12/02/17 09:28 12/02/17 09:28 Laboratory Results - last 24 hr 12/02/17 12/02/17 09:28 09:28 WBC 6.6 RBC 4.00 L Hgb 12.9 L Hct 38.1 L MCV 95.1 MCH 32.1 MCHC 33.8 RDW 13.9 Plt Count 284 MPV 7.8 Neut % (Auto) 61.7 Lymph % (Auto) 27.5 [place] % (Auto) 8.4 H Eos % (Auto) 2.0 Baso % (Auto) 0.4 Neut # (Auto) 4.1 Lymph # (Auto) 1.8 [place] # (Auto) 0.6 Eos # (Auto) 0.1 Baso # (Auto) 0.0 WBC Differential . Differential Comment Auto diff final Sodium 140 Potassium 4.1 Chloride 107 Carbon Dioxide 28.6 Anion Gap 4 L BUN 9 Creatinine 0.54 L Estimated GFR Greater than 89 Random Glucose 93 Calcium 8.8 - Imaging Impressions Finger X-Ray 12/01/17 01:32 CONCLUSION: 1. Comminuted fracture at the base of the distal phalanx of the thumb with intra-articular extension. 2. Possible avulsion injury at the base of the first metacarpal. - Procedures none Assessment and Plan - Assessment (1) Closed head injury with brief loss of consciousness Code(s): S06.9X9A - Unspecified intracranial injury with loss of consciousness of unspecified duration, initial encounter Status: Acute (2) Syncope Code(s): R55 - Syncope and collapse Status: Acute (3) Fracture of phalanx of right thumb Code(s): S62.501A - Fracture of unspecified phalanx of right thumb, initial encounter for closed fracture Status: Acute - Plan 1. Altered mental status/? syncopal event. Patient does not remember how he fell. Concern for syncope. Echo pending. CUS unremarkable Orthostatic vital signs neg Head CT significant for a cephalohematoma over the left frontal region without acute intracranial process. Ice Mentation has returned to baseline. May be post concussive syndrome Consider MRI/neurology consult if symptoms return SB in the 40s. EKG tracing reviewed by me SB HR 57 with first degree AVB. Consult pt's card 2. Hypertension Continue home medications once medication reconciliation completed Clonidine as needed 3. Restless leg syndrome Continue home Requip 4. Uncovertebral ridging narrows neural foramina at multiple levels which may be severe enough to compromise both C4, left C5 and left C7 nerve roots. Intermittent neck pain after swimming but no radiculopathy or weakness. 5. Comminuted fracture at the base of the distal phalanx of the thumb with intra-articular extension. Possible avulsion injury at the base of the first metacarpal. Nonweightbearing. Splinting. Consult hand surgery, nonsurgical mgt. Pain management with Tylenol and Lortab FEN Electrolytes: Monitor and replete as needed Holding pharmacologic anticoagulation secondary to head trauma Discharge Planning: Discharge when cleared by card (2) Syncope Qualifiers: Syncope type: unspecified Qualified Code(s): R55 - Syncope and collapse (3) Fracture of phalanx of right thumb Qualifiers: Encounter type: initial encounter Fracture type: closed Phalanx: distal Fracture alignment: nondisplaced Qualified Code(s): S62.524A - Nondisplaced fracture of distal phalanx of right thumb, initial encounter for closed fracture
--- NOTE | 2017-12-02 18:11 | MB ---
cc: Shazia Lock MD DATE: 12/02/2017 REASON FOR CONSULTATION: Syncope. HISTORY OF PRESENT ILLNESS: This is an 82-year-old man who is well known to me, has a past medical history of hypertension and asthma. The patient presented to [place] emergency room after he passed out in the bathroom. According to the patient, he does not remember exactly what happened. He was found by his on the floor of his bathroom after she heard the thump. The patient woke up after that and had no recollection of what happened, especially prior to this episode. He denies unprovoked or exertional chest pain or shortness of breath. He also denies any orthopnea, lower extremity edema or recent weight gain. Initial workup included 12-lead EKG, which showed sinus bradycardia. He also had a CT scan of the head, which was essentially negative. He sustained a right thumb fracture, which was treated adequately. Currently, the patient is asymptomatic. ALLERGIES: UNKNOWN. SOCIAL HISTORY: Nonsmoker, nondrinker. FAMILY HISTORY: Noncontributory. REVIEW OF SYSTEMS: HEENT: Positive for syncope. CARDIOVASCULAR: No history of coronary artery disease. PULMONARY: Positive for asthma. GASTROINTESTINAL: No history of GERD, GI bleed. GENITOURINARY: No history of renal failure. The remainder of his review of systems is within normal limits. PHYSICAL EXAMINATION: VITAL SIGNS: Show blood pressure of 120/70 with a heart rate of 60, respiratory rate of 12. The patient is afebrile. NECK: Supple with no jugular venous distention. CHEST: Clear to auscultation and percussion. HEART: S1, normal intensity, S2 single. Regular rate and rhythm. S3 appreciated. ABDOMEN: Benign. EXTREMITIES: No edema, clubbing or cyanosis. IMPRESSION: 1. Syncope of uncertain etiology. I doubt bradycardia has anything to do with it. The patient had baseline bradycardia all his life. 2. History of hypertension. 3. History of asthma. RECOMMENDATIONS: All the tests have been checked and they were normal. The patient is cleared from the cardiovascular standpoint to be discharged home from my perspective. I advised him against driving until I see him in the office. I will order then simultaneous EEG/EKG recording for 5 days to rule out neurologic and cardiac etiologies. Again, I recommended against driving at this point. Thank you for this consultation. MD JAY Erwin/HIRAM , 05:57 PM , 06:04 PM
[2017-12-02] MEDS: Montelukast 10 MG Tablet PO SCH (21:54)
--- NOTE | 2017-12-03 09:12 | P.PN ---
Subjective Interval history: Follow-up syncope and possible aortic vegetation. He is doing okay just completed EEG. Discussed with infectious disease, abnormal echocardiogram likely AV sclerosis though unable to completely rule out vegetation per cardiology. Patient has no signs and symptoms consistent with infectious endocarditis patient will be monitored off antibiotics. Patient has pending blood cultures aware to follow-up with PCP and cardiology results of cultures. To seek medical attention if patient develops fever Physical Exam Vital signs: Vital Signs 12/02/17 12:16 12/02/17 16:10 12/02/17 19:33 Temperature 97.7 F 97.6 F Pulse Rate 60 55 L 68 Respiratory Rate 16 16 Blood Pressure 121/78 150/89 H Pulse Oximetry 99 92 L 12/02/17 20:00 12/03/17 00:00 12/03/17 03:30 Temperature 98.3 F 97.9 F Pulse Rate 70 60 57 L Respiratory Rate 17 17 17 Blood Pressure 132/77 129/76 Pulse Oximetry 98 98 12/03/17 08:00 Temperature 97.7 F Pulse Rate 56 L Respiratory Rate 16 Blood Pressure 157/78 H Pulse Oximetry 100 Intake & Output 12/02/17 12/03/17 12/03/17 18:59 06:59 18:59 Intake Total 360 / 360 Balance 360 / 360 Intake: Oral 360 / 360 Other: # Voids 2 Date of Last Bowel Movement 12/02/17 Narrative: Gen.: No acute distress Head: Moderate size cephalohematoma on left forehead near the mu-ism. Cardiovascular: SB, Regular rhythm. + murmurs no rubs or gallops. Respiratory: Lungs clear to auscultation bilaterally. No wheezes or rhonchi. Abdomen: Soft, nontender, nondistended. No peritoneal signs. Musculoskeletal: No gross deformities. No edema. Skin: No obvious rashes or erythema. Neuro: Sensory and motor grossly intact. Cranial nerves II through XII grossly intact. Results - Labs CBC & Chem 7: 12/02/17 09:28 12/02/17 09:28 Laboratory Results - last 24 hr 12/02/17 12/02/17 09:28 09:28 WBC 6.6 RBC 4.00 L Hgb 12.9 L Hct 38.1 L MCV 95.1 MCH 32.1 MCHC 33.8 RDW 13.9 Plt Count 284 MPV 7.8 Neut % (Auto) 61.7 Lymph % (Auto) 27.5 [place] % (Auto) 8.4 H Eos % (Auto) 2.0 Baso % (Auto) 0.4 Neut # (Auto) 4.1 Lymph # (Auto) 1.8 [place] # (Auto) 0.6 Eos # (Auto) 0.1 Baso # (Auto) 0.0 WBC Differential . Differential Comment Auto diff final Sodium 140 Potassium 4.1 Chloride 107 Carbon Dioxide 28.6 Anion Gap 4 L BUN 9 Creatinine 0.54 L Estimated GFR Greater than 89 Random Glucose 93 Calcium 8.8 - Imaging Impressions Finger X-Ray 12/01/17 01:32 CONCLUSION: 1. Comminuted fracture at the base of the distal phalanx of the thumb with intra-articular extension. 2. Possible avulsion injury at the base of the first metacarpal. - Procedures none Assessment and Plan - Assessment (1) Closed head injury with brief loss of consciousness Code(s): S06.9X9A - Unspecified intracranial injury with loss of consciousness of unspecified duration, initial encounter Status: Acute (2) Syncope Code(s): R55 - Syncope and collapse Status: Acute (3) Fracture of phalanx of right thumb Code(s): S62.501A - Fracture of unspecified phalanx of right thumb, initial encounter for closed fracture Status: Acute - Plan 1. Altered mental status/? syncopal event. Patient does not remember how he fell. Concern for syncope. Echo vegetation in the aortic valve. CUS unremarkable Orthostatic vital signs neg Check EEG Faisal head CT significant for a cephalohematoma over the left frontal region without acute intracranial process. Ice Mentation has returned to baseline. May be post concussive syndrome Consider MRI/neurology consult if symptoms return SB in the 40s. EKG tracing reviewed by me SB HR 57 with first degree AVB. Patient's bench tool maker has cleared patient for discharge to see patient in 5 days. No driving. Will arrange continuous EKG and EEG monitoring for 5 days outpatient 2. Hypertension Continue home medications once medication reconciliation completed Clonidine as needed 3. Restless leg syndrome Continue home Requip 4. Uncovertebral ridging narrows neural foramina at multiple levels which may be severe enough to compromise both C4, left C5 and left C7 nerve roots. Intermittent neck pain after swimming but no radiculopathy or weakness. 5. Comminuted fracture at the base of the distal phalanx of the thumb with intra-articular extension. Possible avulsion injury at the base of the first metacarpal. Nonweightbearing. Splinting. Consult hand surgery, nonsurgical mgt. Pain management with Tylenol and Lortab 6. Vegetation in the aortic valve. No fever. Discussed with infectious disease, abnormal echocardiogram likely AV sclerosis though unable to completely rule out vegetation per cardiology. Patient has no signs and symptoms consistent with infectious endocarditis patient will be monitored off antibiotics. Patient has pending blood cultures aware to follow-up with PCP and cardiology results of cultures. To seek medical attention if patient develops fever Holding pharmacologic anticoagulation secondary to head trauma Discharge Planning: Discharge today pending EEG (2) Syncope Qualifiers: Syncope type: unspecified Qualified Code(s): R55 - Syncope and collapse (3) Fracture of phalanx of right thumb Qualifiers: Encounter type: initial encounter Fracture type: closed Phalanx: distal Fracture alignment: nondisplaced Qualified Code(s): S62.524A - Nondisplaced fracture of distal phalanx of right thumb, initial encounter for closed fracture
[2017-12-03] MEDS: Budesonide-Formoterol 160/4.5 MCG 6 GM Inhaler INH SCH (10:19)
[2017-12-03] MEDS: Calcium Carbonate 500 MG Tablet PO SCH (10:23)
[2017-12-03] MEDS: Folic Acid 1 MG Tablet PO SCH (10:25)
[2017-12-03] MEDS: Senna/Docusate Sodium 8.6/50 MG Tablet PO SCH (10:25)
[2017-12-03] MEDS: Acetaminophen 325 MG Tablet PO PRN ×2 (10:54→15:10)
--- NOTE | 2017-12-03 10:54 | P.CONID ---
History of Present Illness Service: Infectious Disease Consult date: 12/03/17 Requesting Physician: Duncan Piper Reason for Consult: Evaluate patient with possible vegetation on echo Primary Care Provider: Brandon Foy MD Family Provider: Brandon Foy MD History of Present Illness: Patient seen and examined. Records reviewed. Patient is an 82-year-old male with a past medical history significant for hypertension and asthma presents to the emergency department after suffering a fall. Patient was in the bathroom and heard a crash. He was found on the floor. Patient could not remember the preceding events prior to the fall. He was brought into the emergency room and was found to have a hematoma on the left temporal region. He was admitted for syncope, and an echo was done, and it showed some abnormality in the aortic valve which could be more consistent with aortic sclerosis, cannot completely rule out vegetation. Patient denies any fever or chills or any night sweats prior to coming into the hospital. He has been afebrile. Has not had any respiratory GI or any urinary complaints. Infectious Disease consultation has been requested to evaluate possible vegetation on his echo. Review of Systems Constitutional: Denies chills, Denies fever(s), Denies malaise, Denies night sweats Eyes: Denies discharge, Denies dry eyes Ears, Nose, Mouth, and Throat: Reports facial pain, Reports headache(s), Denies dental pain, Denies dry mouth, Denies ear discharge, Denies ear pain, Denies nasal congestion, Denies nasal discharge, Denies sore throat Cardiovascular: Denies chest pain, Denies rapid, pounding, or irregular heartbeat, Denies shortness of breath Respiratory: Denies cough, Denies shortness of breath Gastrointestinal: Denies abdominal pain, Denies loose stools, Denies nausea, Denies pain with swallowing, Denies vomiting Genitourinary: Denies painful urination Musculoskeletal: Denies joint pain, Denies joint swelling Skin/Breast: Denies rash PMFSH - History History Provided By: Patient - Medical History Medical History: Medical History (Last Reviewed 12/03/17 @ 10:48 by Ann Valencia MD) Asthma Hypertension - Surgical History Surgical History: Surgical History (Last Reviewed 12/03/17 @ 10:48 by Ann Valencia MD) History of arthroplasty of both hips - Family History Family History: Family History (Last Updated 12/01/17 @ 04:09 by Lilli Hillman MD) Other No family history of cardiac disease - Tobacco History Second Hand Smoke Exposure: No Smoking Status: Never smoker - Alcohol History How Often Do You Have a Drink Containing Alcohol: 4 or more times a week - Substance Use History Substance History: No History of Abuse - Travel History Recent Travel in the [place] Within the Last 8 Weeks: No Recent Travel Out of the Country Within the Last 8 Weeks: No - Immunization History Tetanus Immunization: <5 Years Hx Influenza Vaccine This Season: Yes Medications and Allergies Active Medications: Active Medications Acetaminophen (Tylenol) 650 mg PO Q4H PRN PRN Reason: PAIN 1-10 AND/OR FEVER >101F Last Admin: 12/02/17 09:36 Dose: 650 mg Hydrocodone Bitart/Acetaminophen ([place] 5/325) 1 tab PO Q4H PRN PRN Reason: BREAKTHROUGH PAIN Al Hydroxide/Mg Hydroxide (Milk Of Magnesia Liq) 30 ml PO Q12H PRN PRN Reason: Mild Constipation Albuterol (Ventolin Hfa Inh) 2 puff INH Q4H PRN PRN Reason: Shortness Of Breath Bisacodyl (Dulcolax Supp) 10 mg RECTAL DAILY PRN PRN Reason: SEVERE CONSITIPATION Budesonide/Formoterol Fumarate (Symbicort 160/4.5 Mcg Inh) 2 puff INH BID [facility] Last Admin: 12/03/17 10:19 Dose: 2 puff Clonidine HCl (Catapres) 0.1 mg PO Q6H PRN PRN Reason: SBP>160, DBP>90 Dextrose (D50w Vial) 50 ml IV.PUSH UNSCH PRN PRN Reason: PER HYPOGLYCEMIA PROTOCOL Fluticasone Propionate (Flonase Nasal [place]) 2 spray EACH NARE DAILY [facility] Last Admin: 12/03/17 10:17 Dose: Not Given Folic Acid (Folic Acid) 1 mg PO DAILY [facility] Last Admin: 12/03/17 10:25 Dose: 1 mg Glucagon (Glucagon Inj) 1 mg OTHER PRN PRN PRN Reason: for Hypoglycemia Protocol Lactulose (Lactulose Liq) 30 ml PO DAILY PRN PRN Reason: SEVERE CONSITIPATION Melatonin (Melatonin) 5 mg PO HS PRN PRN Reason: Insomnia Montelukast Sodium (Singulair) 10 mg PO QPM [facility] Last Admin: 12/02/17 21:54 Dose: 10 mg Naloxone HCl (Narcan Inj) 0.4 mg IV.PUSH UNSCH PRN PRN Reason: SEE LABEL COMMENTS Ondansetron HCl (Zofran Inj) 4 mg IV.PUSH Q6H PRN PRN Reason: NAUSEA OR VOMITING Pantoprazole Sodium (Protonix) 40 mg PO DAILY [facility] Last Admin: 12/03/17 10:21 Dose: 40 mg Ropinirole HCl (Requip) 1 mg PO HS [facility] Last Admin: 12/02/17 21:54 Dose: 1 mg Senna/Docusate Sodium (Tiffanie-Colace) 1 tab PO BID [facility] Last Admin: 12/03/17 10:25 Dose: 1 tab Sennosides (Senokot) 17.2 mg PO Q12H PRN PRN Reason: Moderate Constipation Valsartan (Diovan) 160 mg PO DAILY [facility] Vitamin D (Vitamin D3) 1,000 unit PO BID [facility] Last Admin: 12/03/17 10:21 Dose: 1,000 unit Allergies Allergy/AdvReac Type Severity Reaction Status Date / Time penicillin G Allergy Severe Rash Verified 12/01/17 11:23 codeine AdvReac Intermediate NAUSEA AND Verified 12/01/17 11:23 VOMITING DIZZINESS Home Medications Medication Instructions Recorded Confirmed Type albuterol sulfate [ProAir HFA] 2 puff INHALATION Q4-6H PRN 12/01/17 12/01/17 History aspirin 81 mg PO DAILY 12/01/17 12/01/17 History calcium carbonate [Calcium 600] 1,200 mg PO BID 12/01/17 12/01/17 History cholecalciferol (vitamin D3) 1,000 unit PO BID 12/01/17 12/01/17 History [Vitamin D3] ferrous sulfate [iron] 325 mg PO DAILY 12/01/17 12/01/17 History fluticasone [Flonase Allergy 2 spray INTRANASAL DAILY 12/01/17 12/01/17 History Relief] fluticasone-salmeterol [Advair 1 inh INHALATION BID 12/01/17 12/01/17 History Diskus] folic acid 1 mg PO DAILY 12/01/17 12/01/17 History melatonin 5 mg PO HS PRN 12/01/17 12/01/17 History montelukast 10 mg PO QPM 12/01/17 12/01/17 History pantoprazole 40 mg PO DAILY 12/01/17 12/01/17 History ropinirole [Requip] 1 mg PO DAILY 12/01/17 12/01/17 History valsartan 160 mg PO DAILY 12/01/17 12/01/17 History Exam Vital signs: Vital Signs 12/02/17 12:16 12/02/17 16:10 12/02/17 19:33 Temperature 97.7 F 97.6 F Pulse Rate 60 55 L 68 Respiratory Rate 16 16 Blood Pressure 121/78 150/89 H Pulse Oximetry 99 92 L 12/02/17 20:00 12/03/17 00:00 12/03/17 03:30 Temperature 98.3 F 97.9 F Pulse Rate 70 60 57 L Respiratory Rate 17 17 17 Blood Pressure 132/77 129/76 Pulse Oximetry 98 98 12/03/17 08:00 Temperature 97.7 F Pulse Rate 56 L Respiratory Rate 16 Blood Pressure 157/78 H Pulse Oximetry 100 Intake & Output 12/02/17 12/03/17 12/03/17 18:59 06:59 18:59 Intake Total 360 / 360 Balance 360 / 360 Intake: Oral 360 / 360 Other: # Voids 2 Date of Last Bowel Movement 12/02/17 Narrative: Physical Examination GENERAL: Patient is a well-nourished, well-developed male, awake and alert, not in respiratory distress. SKIN: Cool and dry. No generalized rash, no evidence of embolic lesions. HEAD: Normocephalic. Has hematoma in L temporal region. EYES: [place] conjunctiva. No petechia or hemorrhage. Pupils equal, round and reactive to light. Extraocular movements full and intact. No scleral icterus. No injection or drainage. Has ecchymoses around L eye laterally EARS, NOSE AND THROAT: Nose without bleeding or purulent nasal discharge. No sinus tenderness. Mucous membranes pink and moist. No oral lesions noted. No exudate. No oral thrush. NECK: Trachea midline. Supple and not tender, no meningeal signs CARDIOVASCULAR: Regular rate and rhythm. Has systolic murmur heard at the base of the heart. ABDOMEN: Soft, non-tender, nondistended. Bowel sounds present and normoactive. No guarding. No rebound. No organomegaly. EXTREMITIES: No clubbing, cyanosis, or edema.No joint effusion, has good ROM. No calf tenderness. Well perfused and warm. NEUROLOGICAL: Awake and alert. Cranial nerves grossly intact. Motor grossly within normal limits. PSYCHIATRIC: Normal affect, calm and cooperative. LINE: No evidence of infection Results - Labs CBC & Chem 7: 12/02/17 09:28 12/02/17 09:28 - Imaging Impressions Finger X-Ray 12/01/17 01:32 CONCLUSION: 1. Comminuted fracture at the base of the distal phalanx of the thumb with intra-articular extension. 2. Possible avulsion injury at the base of the first metacarpal. 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
--- NOTE | 2017-12-03 14:12 | P.DS ---
Date of admission: 12/01/17 04:50 Primary care physician: Brandon Foy MD Brief History from admission: 82-year-old male with a past medical history significant for hypertension and asthma presents to the emergency department after suffering a fall. The patient 's reports that he heard a crash from the bathroom and when he came in she found her on the floor. The patient is not sure how he fell, believes it may be secondary to low blood pressure. The patient has a cephalohematoma on the left side of his head secondary to his fall. He denies any chest pain or shortness of breath. No abdominal pain. No nausea/vomiting/diarrhea. No fever/chills. The patient's reports that the patient was very confused after his fall. She states he only knew his name and did not know his birthday, the current year or the president. At the time of our interview the patient is able to answer all of these questions correctly. He states he feels fine at this time. DS: Diagnosis - Discharge Diagnosis (1) Closed head injury with brief loss of consciousness Status: Acute (2) Syncope Status: Acute (3) Fracture of phalanx of right thumb Status: Acute DS: Medications - Discharge Medications Prescriptions: losartan 100 mg PO DAILY #60 tab DS: Summary Hospital Course: 1. Altered mental status/? syncopal event. Patient does not remember how he fell. Concern for syncope. Echo vegetation in the aortic valve. CUS unremarkable Orthostatic vital signs neg F/u EEG results Faisal head CT significant for a cephalohematoma over the left frontal region without acute intracranial process. Ice Mentation has returned to baseline. May be post concussive syndrome Consider MRI/neurology consult if symptoms return SB in the 40s. EKG tracing reviewed by me SB HR 57 with first degree AVB. Patient's dietetic aide has cleared patient for discharge to see patient in 5 days. No driving. Will arrange continuous EKG and EEG monitoring for 5 days outpatient 2. Hypertension Continue home medications once medication reconciliation completed. Valsartan on recall will switch to losartan Clonidine as needed 3. Restless leg syndrome Continue home Requip 4. Uncovertebral ridging narrows neural foramina at multiple levels which may be severe enough to compromise both C4, left C5 and left C7 nerve roots. Intermittent neck pain after swimming but no radiculopathy or weakness. 5. Comminuted fracture at the base of the distal phalanx of the thumb with intra-articular extension. Possible avulsion injury at the base of the first metacarpal. Nonweightbearing. Splinting. Consult hand surgery, nonsurgical mgt. Pain management with Tylenol and Lortab 6. Vegetation in the aortic valve. No fever. Discussed with infectious disease, abnormal echocardiogram likely AV sclerosis though unable to completely rule out vegetation per cardiology. Patient has no signs and symptoms consistent with infectious endocarditis patient will be monitored off antibiotics. Patient has pending blood cultures aware to follow-up with PCP and cardiology results of cultures. To seek medical attention if patient develops fever Holding pharmacologic anticoagulation secondary to head trauma - Time Spent with Patient Total time spent providing and/or coordinating discharge services: Greater than 30 minutes - Quality: VTE Deep Vein Thrombosis/Pulmonary Embolism Present on Admission: Yes Exam Vital signs: Vital Signs 12/02/17 16:10 12/02/17 19:33 12/02/17 20:00 Temperature 97.7 F 97.6 F Pulse Rate 55 L 68 70 Respiratory Rate 16 16 17 Blood Pressure 121/78 150/89 H Pulse Oximetry 99 92 L 12/03/17 00:00 12/03/17 03:30 12/03/17 08:00 Temperature 98.3 F 97.9 F 97.7 F Pulse Rate 60 57 L 56 L Respiratory Rate 17 17 16 Blood Pressure 132/77 129/76 157/78 H Pulse Oximetry 98 98 100 12/03/17 12:00 Temperature 98.0 F Pulse Rate 56 L Respiratory Rate 16 Blood Pressure 153/74 H Pulse Oximetry Intake & Output 12/02/17 12/03/17 12/03/17 18:59 06:59 18:59 Intake Total 360 / 360 Balance 360 / 360 Intake: Oral 360 / 360 Other: # Voids 2 Date of Last Bowel Movement 12/02/17 Narrative: Gen.: No acute distress Head: Moderate size cephalohematoma on left forehead near the druze. Cardiovascular: SB, Regular rhythm. + murmur no rubs or gallops. Respiratory: Lungs clear to auscultation bilaterally. No wheezes or rhonchi. Abdomen: Soft, nontender, nondistended. No peritoneal signs. Musculoskeletal: No gross deformities. No edema. Skin: No obvious rashes or erythema. Neuro: Sensory and motor grossly intact. Cranial nerves II through XII grossly intact. Results Procedures completed during hospitalization: none Labs on day of discharge: Preliminary micro results at discharge 12/02/17 18:43 Aerobic Blood Culture - Preliminary Blood - Peripheral No growth in 1 day Anaerobic Blood Culture - Preliminary No growth in 1 day 12/02/17 18:38 Aerobic Blood Culture - Preliminary Blood - Peripheral No growth in 1 day Anaerobic Blood Culture - Preliminary No growth in 1 day - Impressions ITS Impressions Carotid Doppler Study 12/01/17 00:00 CONCLUSION: Mild plaquing with no evidence of stenosis. Cervical Spine CT 12/01/17 00:01 CONCLUSION: Head CT 12/01/17 00:01 CONCLUSION: Finger X-Ray 12/01/17 01:32 CONCLUSION: 1. Comminuted fracture at the base of the distal phalanx of the thumb with intra-articular extension. 2. Possible avulsion injury at the base of the first metacarpal. Discharge Plan - Discharge Disposition Patient Disposition: /Home Health Service - Discharge Condition Condition: Stable - Discharge Order Discharge Orders: Discharge Order (Routine); Ordered 12/03/17 Ordered By: Duncan Piper - Physicians Team Primary Care Provider: Brandon Foy Attending Provider: Duncan Piper Other Providers: Mary Arora MD ; Shazia Lock MD ; Ann Valencia MD
--- NOTE | 2017-12-03 14:56 | ECG ---
Date Performed: 12/02/2017 Time Performed: 10:35:51 PTAGE: 82 years EKG: SINUS BRADYCARDIA WITH FIRST DEGREE AV BLOCK Since previous tracing, no significant change noted ABNORMAL ECG PREVIOUS TRACING : 07/31/2006 05.07 DOCTOR: Rafael Piña Interpretating Date/Time 12/03/2017 14:55:58
--- NOTE | 2017-12-03 17:46 | MG ---
cc: Alton Peralta MD, David J MD EEG NUMBER [id number] Left frontal hematoma. A 9 Hz, 60 microvolt symmetric posterior and diffuse rhythm is seen. Hyperventilation is not performed. Photic stimulation was performed without significant posterior driving. No epileptiform or seizure activity was noted. There were no hemisphere asymmetries. IMPRESSION: A normal electroencephalogram. No evidence for a focal or diffuse abnormality. Alton Rouse. MD HEIDI Peralta/ , 05:38 PM , 05:42 PM
== END 2017-12-03 18:37 | disposition home health service (06) ==
LOC: NEPE 23:38 → NEPGCP 23:38 → NEDA 12-01 04:50 → INTOOBSV 12-01 04:50 → NEDA 12-01 11:13 → NEPGCP 12-01 11:23
PROVIDERS: ADMIT Internal Medicine; ATTEND Internal Medicine
DX: W19.XXXA Unspecified fall, initial encounter; J44.9 Chronic obstructive pulmonary disease, unspecified; I10 Essential (primary) hypertension; Y92.002 Bathroom of unspecified non-institutional (private) residence as the place of occurrence of the external cause; I44.0 Atrioventricular block, first degree; I26.99 Other pulmonary embolism without acute cor pulmonale; Z88.0 Allergy status to penicillin; R55 Syncope and collapse; S06.2X1A Diffuse traumatic brain injury with loss of consciousness of 30 minutes or less, initial encounter; G25.81 Restless legs syndrome; S62.524A Nondisplaced fracture of distal phalanx of right thumb, initial encounter for closed fracture; Z79.82 Long term (current) use of aspirin